=== PATIENT | female | born 1995 | race Two or more races ===

== ENCOUNTER 2021-02-14 01:50 | Inpatient (IN) | payer OTHER ==
[~2021-02-14] VITALS: Ht 160 cm; Wt 93.6 kg
[2021-02-14] MEDS: LACTATED RINGERS 1,000 ML IV SCH ×2 (06:25→15:59)
[2021-02-14 06:59] VITALS: BP 112/61
[2021-02-14] MEDS ORDERED: FENTANYL PF 100 MCG/2ML IV PRN (07:00)
[2021-02-14] MEDS ORDERED: D5%-LACTATED RINGERS 1,000 ML IV SCH (07:00)
[2021-02-14] MEDS ORDERED: CALCIUM CARBONATE 500 MG TAB.CHEW PO PRN (07:00)
[2021-02-14] MEDS ORDERED: TERBUTALINE 1 MG/ML, 1ML IVPush PRN (07:00)
[2021-02-14] MEDS ORDERED: OXYTOCIN 30U/ 0.9% NaCL 500ML 500 ML IV PRN (07:00)
[2021-02-14] MEDS ORDERED: TERBUTALINE 1 MG/ML, 1ML SQ PRN (07:00)
[2021-02-14] MEDS ORDERED: PLEASE ENTER ALLERGIES MC SCH (07:00)
[2021-02-14] MEDS ORDERED: ONDANSETRON 2MG/ML, 2ML IVPush PRN (07:00)
[2021-02-14] MEDS ORDERED: OXYTOCIN 30U/ 0.9% NaCL 500ML 500 ML ONE (07:01)
[2021-02-14] MEDS: MISOPROSTOL 25 MCG TABLET VG PRN ×2 (07:31→12:05)
[2021-02-14 07:33] LABS: BASOPHILS % (AUTO) 1 % (0-1); EOSINOPHILS % (AUTO) 6 % (1-7); LYMPHOCYTES % (AUTO) 22 % (22-44); MEAN CORPUSCULAR HEMOGLOBIN 27.3 pg (27.0-34.8); MEAN CORPUSCULAR HGB CONC 33.7 g/dL (32.4-35.8); MEAN PLATELET VOLUME 8.2 fL (7.4-10.4); MONOCYTES % (AUTO) 8 % (2-9); NEUTROPHILS % (AUTO) 63 % (42-75); PLATELET COUNT 313 x10^3/uL (130-400); RED BLOOD COUNT 3.84 x10^6/uL (3.82-5.3); RED CELL DISTRIBUTION WIDTH 14.1 % (9.6-15.2)
[2021-02-14] MEDS ORDERED: NEWBORN KIT ONE (07:50)
[2021-02-14] MEDS ORDERED: MISOPROSTOL 200 MCG TABLET ONE (07:50)
[2021-02-14] MEDS ORDERED: LIDOCAINE 1%, 20ML ONE (07:50)
[2021-02-14] MEDS: FENTANYL PF 100 MCG/2ML IVPush PRN ×2 (18:25→19:33)
[2021-02-14] MEDS ORDERED: FENTANYL/BUPIV./NS/PF 250 ML EPIDCONT SCH ×2 (19:00→21:00)
[2021-02-14] MEDS ORDERED: LACTATED RINGERS 1,000 ML IV SCH (21:00)
[2021-02-14] MEDS ORDERED: LACTATED RINGERS 1,000 ML IVBOLUS PRN (21:00)
[2021-02-14] MEDS ORDERED: NALOXONE 0.4 MG/ML, 1ML IVPush PRN (21:00)
[2021-02-14] MEDS ORDERED: EPHEDRINE 50 MG/ML, 1ML IVPush PRN (21:00)
[2021-02-14] MEDS ORDERED: BUPIVACAINE 0.25% ONE (21:14)
[2021-02-15] MEDS ORDERED: ACETAMINOPHEN 325 MG TABLET PO PRN (03:30)
[2021-02-15] MEDS ORDERED: MISOPROSTOL 200 MCG TABLET PR PRN (03:30)
[2021-02-15] MEDS ORDERED: SIMETHICONE 80 MG CHEW TAB PO PRN (03:30)
[2021-02-15] MEDS ORDERED: IBUPROFEN 600 MG TABLET PO PRN (03:30)
[2021-02-15] MEDS ORDERED: ONDANSETRON 2MG/ML, 2ML IV PRN (03:30)
[2021-02-15] MEDS: OXYTOCIN 30U/ 0.9% NaCL 500ML 500 ML IV SCH ×2 (03:30→13:30)
[2021-02-15] MEDS ORDERED: DOCUSATE 100 MG CAPSULE PO PRN (03:30)
[2021-02-15 05:00] VITALS: BP 104/69
[2021-02-15 08:15] VITALS: BP 92/57
[2021-02-15 08:30] VITALS: BP 97/67
[2021-02-15] MEDS ORDERED: PRENATAL VIT/IRON/FA 1 EACH TABLET PO SCH (09:00)
[2021-02-15 12:25] VITALS: BP 105/72
[2021-02-15 15:45] VITALS: BP 101/69
[2021-02-15 20:00] VITALS: BP 98/67
[2021-02-16] MEDS ORDERED: IBUP-1222 PO (06:58)
[2021-02-16 07:45] VITALS: BP 100/63
[2021-02-16] MEDS ORDERED: IBUPROFEN 600 MG TABLET PO PRN (10:00)
[2021-02-16] MEDS ORDERED: DOCUSATE 100 MG CAPSULE PO PRN (10:00)
[2021-02-17] MEDS ORDERED: PRENATAL VIT/IRON/FA 1 EACH TABLET PO SCH (09:00)
== END 2021-02-16 14:55 | disposition home or self-care (01) | DRG 806 ==
LOC: LDIP 06:21 → 2NW 02-15 04:40
PROVIDERS: ADMIT Student in an Organized Health Care Education/Training Program; ATTEND Student in an Organized Health Care Education/Training Program
PROC: 10E0XZZ Delivery of Products of Conception, External Approach (ICD-10-PCS; principal; 2021-02-15)
PROC: 0HQ9XZZ Repair Perineum Skin, External Approach (ICD-10-PCS; 2021-02-15)
PROC: 10907ZC Drainage of Amniotic Fluid, Therapeutic from Products of Conception, Via Natural or Artificial Opening (ICD-10-PCS; 2021-02-15)
PROC: 3E0R3BZ Introduction of Anesthetic Agent into Spinal Canal, Percutaneous Approach (ICD-10-PCS; 2021-02-15)
PROC: 00HU33Z Insertion of Infusion Device into Spinal Canal, Percutaneous Approach (ICD-10-PCS; 2021-02-15)
DX: O99.02 Anemia complicating childbirth (principal); O99.354 Diseases of the nervous system complicating childbirth; Z37.0 Single live birth; Z3A.39 39 weeks gestation of pregnancy; J45.909 Unspecified asthma, uncomplicated; Z20.822 Contact with and (suspected) exposure to COVID-19; O99.52 Diseases of the respiratory system complicating childbirth; G43.909 Migraine, unspecified, not intractable, without status migrainosus; D64.9 Anemia, unspecified; E55.9 Vitamin D deficiency, unspecified; O99.284 Endocrine, nutritional and metabolic diseases complicating childbirth; E78.5 Hyperlipidemia, unspecified; O70.0 First degree perineal laceration during delivery
CPT/HCPCS: 36415; 85025; 86592; 86850; 86900; 87635; G0378; J3010; G0463; J2590; J7120